=== PATIENT | female | born 1985 ===

== ENCOUNTER 2020-12-28 09:52 | Day surgery (SDC) | payer OTHER ==
[~2020-12-28 09:52] MED LIST: IRON PO
== END 2020-12-28 19:12 | disposition home or self-care (01) ==
LOC: CIR.AMB 09:52
PROVIDERS: ATTEND Specialist
DX: N84.0 Polyp of corpus uteri (principal); N72 Inflammatory disease of cervix uteri; Z20.822 Contact with and (suspected) exposure to COVID-19

== ENCOUNTER 2023-08-26 08:59 | Outpatient (CLI) | payer OTHER | END 2023-08-26 09:05 | disposition home or self-care (01) | LOC: RX STUDY 08:59 | PROVIDERS: ATTEND Obstetrics & Gynecology | DX: N70.01 Acute salpingitis (principal) ==

== ENCOUNTER → 2024-05-11 14:51 | Outpatient (CLI) | payer OTHER | END | disposition home or self-care (01) | LOC: PRENATAL 14:51 | PROVIDERS: ATTEND Obstetrics & Gynecology Maternal & Fetal Medicine | DX: O26.859 Spotting complicating pregnancy, unspecified trimester (principal); O99.280 Endocrine, nutritional and metabolic diseases complicating pregnancy, unspecified trimester; Z36.82 Encounter for antenatal screening for nuchal translucency; Z14.8 Genetic carrier of other disease; Z3A.12 12 weeks gestation of pregnancy ==

== ENCOUNTER 2024-07-07 08:14 | Outpatient (CLI) | payer OTHER | END 2024-07-07 08:17 | disposition home or self-care (01) | LOC: PRENATAL 08:14 | PROVIDERS: ATTEND Obstetrics & Gynecology Maternal & Fetal Medicine | DX: O44.00 Complete placenta previa NOS or without hemorrhage, unspecified trimester (principal); O99.280 Endocrine, nutritional and metabolic diseases complicating pregnancy, unspecified trimester; Z3A.20 20 weeks gestation of pregnancy ==

== ENCOUNTER 2024-09-02 14:05 | Outpatient (CLI) | payer OTHER | END 2024-09-02 14:06 | disposition home or self-care (01) | LOC: PRENATAL 14:05 | PROVIDERS: ATTEND Obstetrics & Gynecology Maternal & Fetal Medicine | DX: O26.849 Uterine size-date discrepancy, unspecified trimester (principal); O99.280 Endocrine, nutritional and metabolic diseases complicating pregnancy, unspecified trimester; O09.529 Supervision of elderly multigravida, unspecified trimester; Z3A.29 29 weeks gestation of pregnancy ==

== ENCOUNTER → 2024-10-13 09:04 | Outpatient (CLI) | payer OTHER | END | disposition home or self-care (01) | LOC: PRENATAL 09:04 | PROVIDERS: ATTEND Obstetrics & Gynecology Maternal & Fetal Medicine | DX: O26.849 Uterine size-date discrepancy, unspecified trimester (principal); O36.8199 Decreased fetal movements, unspecified trimester, other fetus; O99.280 Endocrine, nutritional and metabolic diseases complicating pregnancy, unspecified trimester; O09.529 Supervision of elderly multigravida, unspecified trimester; O99.019 Anemia complicating pregnancy, unspecified trimester; Z3A.35 35 weeks gestation of pregnancy ==